=== PATIENT | female | born 1980 | race Caucasian/White ===

== ENCOUNTER → 2023-06-28 18:51 | Outpatient (REF) | payer BC, SELFPAY | LOC: WDC 18:51 | PROVIDERS: ATTENDING PHYSICIAN Family Medicine | DX: Z12.31 Encounter for screening mammogram for malignant neoplasm of breast (principal) | CPT/HCPCS: 77063; 77067 ==

== ENCOUNTER 2023-10-16 01:21 | Observation (INO) | payer BC, SELFPAY ==
[2023-10-15 19:32] VITALS: BP 148/84
--- NOTE | 2023-10-15 20:22 | ED.GENMED ---
History of Present Illness
General
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
Source: patient
Exam Limitations: none
Time Seen by Provider: 10/15/23 20:14
History of Present Illness
History of Present Illness:
43-year-old female 2 to 3 days of progressive pain and swelling to the perirectal area. No pain with defecation. No rectal bleeding. No abdominal pain no systemic symptoms. Patient was seen at urgent care and sent for further evaluation of a
possible perirectal abscess.
Past History
Past History
ED Past Medical History: Other (On Mounjaro and metformin. However not for diabetes.)
Review of Systems
Review of Systems
All Other Systems: Not applicable
Constitutional: Denies fever or chills
Phy Exam
Physical Exam
Physical Exam:
GENERAL: Alert and oriented in no apparent distress
CARDIAC: Regular rate and rhythm without any obvious murmurs.
LUNGS: Clear breath sounds,normal
ABDOMEN: Soft, without focal tenderness or distention. Some hardness to the left perirectal area relatively deep. Approximately 2 cm. No erythema no drainage. Rectal exam normal. External vaginal area normal
NEUROLOGICAL: Alert and oriented , grossly non-focal
SKIN: Warm and dry
PSYCH: Normal and appropriate interaction.
Course
Orders/Labs/Results
Orders:
Orders
10/15/23 20:21
CT Pelvis With Iv Contrast Urgent
Comment:
Reason For Exam: Perirectal abscess
IV Insert/Care/Rem.- Treatment PRN
0.9% Sodium Chloride 500 ml [Nss] 500 ml IV BOLUS
10/15/23 20:22
Test Result ONCE
10/15/23 20:50
Basic Metabolic Panel Urgent
Complete Blood Count/With Diff Urgent
HCG, Serum Qualitative Screen Urgent
10/15/23 23:55
Zosyn 3.375 grams IVPB NOW Piperacillin/Tazo 3.375 Gram [Zosyn] 3.375 gram in 50 ml IV NOW
Abnormal Lab Results
10/15/23
20:50
WBC 13.1 H 10^3/uL
(4.8-10.8)
MPV 10.6 H fL
(7.4-10.4)
Abs Immat Gran (auto) 0.1 H 10^3/uL
(0-0.05)
Absolute Neuts (auto) 9.8 H 10^3/uL
(1.4-6.5)
Absolute Monos (auto) 0.8 H 10^3/uL
(0.1-0.6)
Lymphocytes % 18.0 L %
(20.5-51.1)
10/15/23 20:50
10/15/23 20:50
Vital Signs
Initial and Last Documented VS:
Initial Vital Signs
Temp Pulse Resp BP Pulse Ox
97.8 F 108 22 148/84 100
10/15/23 19:32 10/15/23 19:32 10/15/23 19:32 10/15/23 19:32 10/15/23 19:32
Last Documented Vital Signs
Temp Pulse Resp BP Pulse Ox
97.8 F 88 16 148/72 100
10/15/23 19:32 10/15/23 22:00 10/15/23 22:00 10/15/23 22:00 10/15/23 22:00
MDM/Problems Addressed
Differential Diagnosis Includes:
Concern for possible early perirectal abscess. Not clearly drainable at this time. Will get a CT scan to further evaluate
*Radiology
Radiology exam reviewed: radiology read reviewed (15 x 15 mm perirectal abscess.)
*Pulse Oximetry
Patient hypoxic: no
*Critical Care Note
Total Time (30-74mins, 75-104mins- exclusive of procedures): Not Applicable
Update Note
Update Note:
Discussed with colorectal surgery. Admit n.p.o. IV antibiotics discussed with colorectal surgery and admit n.p.o. IV antibiotics
ED Attending Note
-
Portions of this chart may have been created with voice recognition software.� Occasional wrong word or��sound alike� substitutions may have occurred due to the inherent limitations of voice recognition software.
Discharge Plan
Departure
Patient Disposition: Admit
Date of Disposition: 10/15/23
Time of Disposition: 23:56
Presentation/result/management discussed w/ accepting MD/DO: Colorectal surgery
Discharge Problem:
Perirectal abscess
Prescriptions:
No Action
Vitamin Tablet
1 tab PO DAILY
ibuprofen 600 MG tablet
600 mg PO Q4HPRN PRN (Reason: moderate pain/cramps) 0RF
Referrals:
Aung Echavarria DO [Family Provider] -
Interventions
Interventions:
*Risk Screen - Suicide Last Done: 10/15/23 19:32
*General Assessment Last Done: 10/15/23 20:30
*Neglect/Abuse Screening Last Done: 10/15/23 19:32
*ED COVID-19 Vaccine History Last Done: 10/15/23 20:30
ED-Female Genitourinary Assessment Last Done: 10/15/23 20:30
Discharge Date and Time
Print Language: GHANAIAN
[2023-10-15] MEDS: NSS 500 IV (20:52)
[2023-10-15 21:03] LABS: % Basophils 0.2 % (0-2); % Eosinophils 0.2 % (0-6); % Immature Granulocytes 0.5 % (0-0.5); % Monocytes 6.3 % (1.7-9.3); % Neutrophils 74.8 % (42.2-75.2); Absolute Immature Granulocytes 0.1 10^3/uL (0-0.05); Absolute Lymphocytes 2.4 10^3/uL (1.2-3.4); Absolute Monocytes 0.8 10^3/uL (0.1-0.6); Absolute Neutrophils 9.8 10^3/uL (1.4-6.5); Hematocrit 37.8 % (37.0-47.0); Hemoglobin 13.2 g/dL (12.0-16.0); Mean Corp Hgb Conc. 34.9 g/dL (33.0-37.0); Mean Corpuscular Hgb 29.3 pg (27.0-31.0); Mean Platelet Volume 10.6 fL (7.4-10.4); Nucleated Red Blood Cells % 0 %; Platelet Count 281 10^3/uL (130-400); Red Cell Dist. Width 12.8 % (11.5-14.5); White Blood Cell Count 13.1 10^3/uL (4.8-10.8)
[2023-10-15 21:09] LABS: HCG, Serum Qualitative Screen Negative
[2023-10-15 21:14] LABS: Blood Urea Nitrogen 9 mg/dl (7-17); Calcium 9.7 mg/dl (8.4-10.2); Carbon Dioxide 25 mmol/L (22-30); Chloride 104 mmol/L (98-107); Glucose 89 mg/dl (70-99); Sodium 137 mmol/L (135-145); eGFR > 60.00
[2023-10-15 22:00] VITALS: BP 148/72
[2023-10-16] VITALS (11 sets, daily range): BP systolic 105–148; BP diastolic 53–80; BMI 26.8
[2023-10-16] MEDS: ZOSYN 50 IV ×2 (00:04→06:19)
--- NOTE | 2023-10-16 01:17 | HPS.HSE ---
Addendum entered and electronically signed by Alex Murphy MD 10/16/23 10:14:
Patient is a 43-year-old female with PMH of obesity, on Mounjaro and metformin for insulin resistance, who presents with 3 days of worsening perianal pain and swelling. This is never happened to her before. Denies any fevers. Has had a history of
2 vaginal deliveries with tears, s/p repair. Denies any fecal incontinence. Also has a history of skin tags and hemorrhoids. Recently underwent a colonoscopy, showing polyps and hemorrhoids. WBC was [address] showing concern for left perianal
abscess, about 1.5 cm.
AFVSS, tender to palpation in the left anterior position with induration extending into the perineum, no obvious fluctuance, no drainage
� Will take to OR for incision and drainage as there is no obvious fluctuance and it appears deep; explained to the risks benefits and alternatives with the patient, all questions were answered and the patient was amenable to proceed
� Keep n.p.o. with IV fluids
� Pain control with Tylenol and Dilaudid
� OOB/IS
� Continue IV Zosyn
Dispo�depending on operative findings
Original Note:
Family Physician
-
Family Physician: Aung Echavarria
Chief Complaint
-
Perirectal discomfort
History of Present Illness
Patient is a 43-year-old female with past medical history of insulin resistance. Currently on Metformin 200mg qHS and Mounjaro 0.5mg weekly on Sundays for insulin resistance and weight loss. Patient presented to [facility] ED to be
evaluated by recommendation of Urgent Care. Patient stated that two days ago she started noticing some discomfort when sitting down, described as pressure. Yesterday while pool side sat on edge of pool and stated the pressure definitely was more
evident on the hard surface. Today while out and running errands all day she noticed she needed to 'brace' herself before sitting down on any surface and prior to having bowel movement. Every time she sat she had discomfort and would become
tolerable. She denies any discomfort when standing, walking or lying down. Denies any fever, chest pain, cough, shortness of breath, nausea, vomiting, constipation, diarrhea, or any urinary symptoms. She ultimately decided to go to Urgent Care for
evaluation and their recommendation was go to ER for further workup. Ct of pelvis: 1.8cm right adnexal cyst. Patient to be admitted to colorectal, Dr. Deshawn Murphy's service.
Medical History
Past Medical History
Past Medical History: Reports Other (insulin resistance)
Past Surgical History: Reports None
Social History
Tobacco: Non-smoker
Alcohol: Occasional (last drink yesterday, 10/14/2023)
Drug: None
Personal:
Living: With Family
Employment: Employed
Family History
Family History: Not pertinent
Allergies / Home Medications
Allergies reflects when Allergies were last updated in [facility] ? IO.
Home Medications with original date entered in [facility] ? IO
Allergy/Medication List:
Allergies
Allergy/AdvReac Type Severity Reaction Status Date / Time
shellfish derived Allergy Tongue Verified 10/15/23 19:36
Swelling
Home Medications Table - record
�Medication �Instructions �Recorded �Confirmed
metformin 1,000 mg tablet 2,000 mg PO HS 10/16/23 10/16/23
tirzepatide 5 mg/0.5 mL 5 mg SC QWEEK 10/16/23 10/16/23
subcutaneous pen injector
(Mounjaro)
Review of Systems
-
History Source: Patient
A 12 point ROS was completed and negative except as noted: Yes
Constitutional: Reports No Symptoms
EENT: Reports No Symptoms
Respiratory: Reports No Symptoms
Cardiac: Reports No Symptoms
Abdomen/GI: Reports Pain (perirectal pressure ) and Other (perirectal 'lump')
: Reports No Symptoms
Musculoskeletal: Reports No Symptoms
Skin: Reports No Symptoms
Neurological: Reports No Symptoms
Endocrine: Reports No Symptoms
Hematologic/Lymphatic: Reports No Symptoms
Psych: Reports No Symptoms
Physical Exam
Vital Signs
Vital Signs
Temp Pulse Resp BP Pulse Ox
97.8 F 88 16 148/72 100
10/15/23 19:32 10/15/23 22:00 10/15/23 22:00 10/15/23 22:00 10/15/23 22:00
Physical Exam
General: Well Developed, Well Nourished, Comfortable and Conversant
HEENT: NormoCephalic, Moist mucous membranes, PERRLA, [place] Conjunctivae, Nose Appears Normal and Ears Appear Normal
Respiratory: Clear and Non Labored Respirations
Cardiac: S1/S2 and Regular Rhythm
Breast: Deferred by me
GI: Soft, Non Tender and Normal Bowel Sounds
Rectal: Masses Palpated (perirectal )
Genito-urinary: Deferred by me
Musculoskeletal: No Clubbing, No Cyanosis, No Edema and Normal Gait & Station
Skin: Warm, Dry and IV/Catheter Site
Neuro: Awake, AO x 3 and Cranial Nerves Intact
Psych: Calm and Intact Judgment/Insight
Laboratory Results
-
10/15/23 20:50
10/15/23 20:50
Data Reviewed
-
CT Scan: Report Reviewed by me and Discussed with Patient
Lab Data: Labs Reviewed by me and Discussed with Patient
Impression/Plan
-
IMPRESSION:
Patient is a 43-year-old female with past medical history of insulin resistance. Currently on Metformin 200mg qHS and Mounjaro 0.5mg weekly on Sundays for insulin resistance and weight loss. Patient presented to [facility] ED to be
evaluated by recommendation of Urgent Care. Patient stated that two days ago she started noticing some discomfort when sitting down, described as pressure. Yesterday while pool side sat on edge of pool and stated the pressure definitely was more
evident on the hard surface. Today while out and running errands all day she noticed she needed to 'brace' herself before sitting down on any surface and prior to having bowel movement. Every time she sat she had discomfort and would become
tolerable. She denies any discomfort when standing, walking or lying down. Denies any fever, chest pain, cough, shortness of breath, nausea, vomiting, constipation, diarrhea, or any urinary symptoms. She ultimately decided to go to Urgent Care for
evaluation and their recommendation was go to ER for further workup. Ct of pelvis: 1.8cm right adnexal cyst. Patient to be admitted to colorectal, Dr. Deshanw Murphy's service.
PLAN:
# Perirectal Abscess
- Admit to Dr. Deshawn Murphy service
- NPO after midnight
- Zosyn q6
# Insulin Resistance
- continue home metformin
NPO
Full Code
DVT Prophylaxis: SCDs
[2023-10-16] MEDS: NSS 1000 IV (04:20)
--- NOTE | 2023-10-16 07:30 | PTCARENOTE ---
Patient ambulating in room, minimal c/o rectal pain. Patient NPO for possible OR. Patient has menses-supplies given to patient.
--- NOTE | 2023-10-16 11:17 | W.IMMPOSTOP ---
Surgical Immed Post Op Note
-
Primary Surgeon: Alex Murphy MD
Assisting Surgeon: None
Pre-op Diagnosis: Perianal abscess
Post-op Diagnosis: Left anterior perianal abscess
Procedure Performed: Incision and drainage of perianal abscess
Anesthesia Type: General
Specimen / Cultures: Aerobic and anaerobic
Estimated Blood Loss: 5 mL
Complications: None
Operative Findings: Per op note
--- NOTE | 2023-10-16 11:27 | OR.RPT ---
Operative Report
Operative Report
DATE OF OPERATION: 10/16/2023
SURGEON: Alex Murphy MD
PREOPERATIVE DIAGNOSIS: Left-sided perianal abscess
POSTOPERATIVE DIAGNOSIS: Left-sided ischiorectal perianal abscess
OPERATION: Exam under anesthesia, incision and drainage of left perianal abscess, anal canal biopsy, pudendal nerve block
ASSISTANTS:
1. None
ANESTHESIA: General with local
ESTIMATED BLOOD LOSS: 5 mL
FINDINGS:
1. Small, white lesion noted just proximal to the dentate line in the right lateral quadrant of the anal canal; performed biopsy
2. Palpable indurated area in the left anterior ischiorectal area; obtained about 3 mL of pus using a finder needle and sent this for cultures; created a cruciate incision about 1.5 cm from the anal verge and identified an ischiorectal abscess,
about 2 cm in diameter; irrigated and left open for drainage
SPECIMENS:
1. Right lateral anal canal biopsy
2. Perianal abscess cultures
DRAINS: None
COMPLICATIONS: None
INDICATIONS: The patient is a 43-year-old female who presented with 3 days of perianal pain and swelling. This is never happened to her before. In the ED, her WBC was [address] showed likely 1.5 cm perianal abscess on the left side. On exam,
there was an indurated area, no fluctuance, in the anterior to left anterior position extending slightly medially into the perineum and laterally into the ischiorectal space. Therefore, the patient was recommended to have surgery both to drain the
abscess and identify the extent of the abscess, as this was difficult to fully appreciate on imaging and exam. The operation was discussed with the patient in detail, including the risks, benefits and alternatives. Risks described included, but not
limited to bleeding, infection, damage to nearby structures such as the anal sphincter, fecal incontinence, recurrence, urinary retention, inability to drain the abscess and anesthetic risk. The patient understood and agreed to proceed.
PROCEDURE IN DETAIL: The patient was taken to the operating room. Per anesthesia, the decision was made to intubate the patient for this surgery due to her recent dosing of Mounjaro. On the stretcher, general anesthesia was induced and the
patient was intubated without complication. The patient was then placed on the operating table in prone position. Sequential compression devices were placed bilaterally. Two seat belts were secured around the legs and upper back. The buttocks
were taped apart. The perineum was prepped and draped in the usual fashion. A time-out was then performed verifying the correct patient, procedure, operative site, positioning, and special equipment.
Local anesthesia used was a mixture of 60 mL of 0.25% Marcaine without epinephrine (with epinephrine was on backorder) and 0.6 mg of dexamethasone. 40 mL was injected perianally at the beginning of the case. The anorectal exam was performed
assessing all four quadrants of the anal canal using Hill-Rojas retractors in progressively increasing size. Within the anal canal, there was no concerning internal hemorrhoids. There were small anal papilla. The rectal mucosa appeared healthy
without inflammation. There appeared to be a healed anterior anal fissure with reepithelialization. There was a small, 7 mm x 2 mm whitish lesion just proximal to the dentate line in the right lateral position. I biopsied this to rule out
dysplasia. I elevated a portion of the lesion with forceps and took a small biopsy with Metzenbaum scissors. Hemostasis was achieved with electrocautery.
On palpation of the indurated area, no drainage was noted within the anal canal. No obvious internal openings were noted. Then, an 18G needle was advanced into the apex of the abscess and 3 mL of pus was aspirated. This was sent for aerobic and
anaerobic culture. I again palpated the indurated area and pus was noted to emanate from the needle hole. I performed a cruciate incision at this spot. Using hemostats, I probed into the ischiorectal space and identified a cavity. No further pus
was noted. The cavity was probed with my finger and no further loculations were noted. The cavity was copiously irrigated. The corners of the cruciate incision were excised. Hemostasis was achieved with electrocautery.
The remaining 20 mL of local were injected. 5 mL was injected bilaterally for a pudendal nerve block. 10 mL was injected around the surgical site and perianally. Hemostasis was reassessed once more using the small Jorge-Rojas and was confirmed.
Hemostasis was confirmed. The corner of a 4x4 gauze was then packed into the abscess cavity.
At this point, the procedure was complete. All needle, sponge and instrument counts were correct. The patient tolerated the procedure well. The area was dressed with gauze and tape.
DICTATED BY: Alex Murphy MD
[2023-10-16 11:30] LABS: Glucose - Point of Care 73 mg/dl (70-99)
== END 2023-10-16 13:16 | disposition home or self-care (01) ==
LOC: ED 01:21
PROVIDERS: ADMITTING PHYSICIAN Surgery; EMERGENCY PHYSICIAN Emergency Medicine; FAMILY PHYSICIAN Family Medicine
DX: K61.2 Anorectal abscess (principal); R10.2 Pelvic and perineal pain; E66.9 Obesity, unspecified; E88.819 Insulin resistance, unspecified; K64.9 Unspecified hemorrhoids; Z68.26 Body mass index [BMI] 26.0-26.9, adult; Z79.84 Long term (current) use of oral hypoglycemic drugs; Z79.85 Long-term (current) use of injectable non-insulin antidiabetic drugs; Z91.013 Allergy to seafood
CPT/HCPCS: 11420; 46050; 88305; 72193; 80048; 82962; 84703; 85025; 87070; 87075; 87077; 87186; 87205; 88341; 88342; 96361; 96365; 99285; G0378; Q9967

== ENCOUNTER 2024-02-06 06:15 | Day surgery (SDC) | payer BC, SELFPAY ==
[2024-02-06 11:03] VITALS: BMI 25.5
[2024-02-06 11:05] VITALS: BMI 25.6
[2024-02-06] MEDS: TYLENOL 1000 MG PO (11:11)
[2024-02-06] MEDS: LYRICA 150 MG PO (11:11)
[2024-02-06] MEDS: CELEBREX 200 MG PO (11:12)
[2024-02-06 11:15] VITALS: BP 122/76
[2024-02-06 11:27] LABS: Glucose - Point of Care 78 mg/dl (70-99)
--- NOTE | 2024-02-06 13:11 | W.IMMPOSTOP ---
Surgical Immed Post Op Note
-
Primary Surgeon: Alex Murphy MD
Assisting Surgeon: None
Pre-op Diagnosis: Perianal fistula
Post-op Diagnosis: Transsphincteric perianal fistula
Procedure Performed: Exam under anesthesia, debridement of fistula tract, placement of seton, bilateral pudendal nerve block
Anesthesia Type: Sedation with local
Specimen / Cultures: Fistula tract, anterior anal canal biopsy
Estimated Blood Loss: 5 mL
Complications: None
Operative Findings: Identified external opening about 1.5 cm from the anal verge in the left anterior position; fistula was probed and internal opening was easily identified in the anterior midline at the level of the dentate line; anterior anal
canal measured approximately 2.5 to 3 cm in length; posterior anal canal measured about 3 cm in length; 7 to 8 mm of external sphincter and 1.5 to 2 cm of internal sphincter muscle were involved in the tract; noticed whitish change to the mucosa
near the internal opening, biopsied; noted small minimally irritated internal hemorrhoids in the normal 3 column distribution; noted small circumferential external hemorrhoids; noted the RAQ skin tag and posterior left of midline skin tag; debrided
the external opening and curetted the fistula tract, sent these specimens as fistula tract; placed a seton
[2024-02-06 13:15] VITALS: BP 109/51
--- NOTE | 2024-02-06 13:24 | OR.RPT ---
Operative Report
Operative Report
DATE OF OPERATION: 02/06/2024
SURGEON: Alex Murphy MD
PREOPERATIVE DIAGNOSIS: Perianal fistula
POSTOPERATIVE DIAGNOSIS: Transsphincteric perianal fistula
OPERATION: Exam under anesthesia, debridement of fistula tract, placement of seton, pudendal nerve block
ASSISTANTS:
1. None
ANESTHESIA: Sedation with local
ESTIMATED BLOOD LOSS: 5 mL
FINDINGS:
1. Identified a left anterior transsphincteric fistula; external opening about 1.5 cm from the anal verge and internal opening in the anterior midline at the level of the dentate line; I estimate about 7 to 8 mm of external sphincter and 1.5 to 2
cm of internal sphincter muscle were involved with the tract; placed a seton
2. Whitish change to the mucosa adjacent to the internal opening, most likely consistent with chronic inflammation; biopsied
3. Anal canal measured approximately 2.5 to 3 cm in length anteriorly and 3 cm in length posteriorly
4. Incidental findings include small minimally irritated internal hemorrhoids in the usual 3�column distribution, circumferential small external hemorrhoids without thrombosis or irritation, large right anterior skin tag and small posterior skin
tag just left of midline
SPECIMENS:
1. Fistula tract
2. Anterior anal canal biopsy
DRAINS: None
COMPLICATIONS: None
INDICATIONS: The patient is a 44-year-old female who initially presented to the [facility] ED on 10/15/2023 with a left anterior perianal abscess. This was drained in the operating room via an incision and drainage. She recovered well from the
surgery with no residual symptoms. She then presented to my office on 12/31 complaining of worsening perianal drainage associated with spotting of blood. There was no fecal incontinence or change to her bowel habits. On exam, I noted an external
opening, concerning for a perianal fistula. Therefore, the patient was recommended to have surgery. The operation was discussed with the patient in detail, including the risks, benefits and alternatives. My plan is to attempt to identify a perianal
fistula. If one is identified, I would evaluate for how much sphincter is involved. If there is no sphincter or minimal sphincter involved, I would perform a fistulotomy. Otherwise, my plan would be to place a seton drain and perform a second
stage surgery at a later date. Risks described included, but not limited to bleeding, infection, urinary retention, damage to nearby structures such as the anal sphincter, fecal incontinence, recurrence, inability to identify the internal opening,
and anesthetic risks. The patient understood and agreed to proceed. The consent was signed and placed in the chart.
PROCEDURE IN DETAIL: The patient was taken to the operating room. The patient was then placed on the operating table in prone position. Sequential compression devices were placed bilaterally. Sedation was commenced without complication. Two seat
belts were secured around the legs and upper back. The buttocks were taped apart. The perineum was prepped and draped in the usual fashion. A time-out was then performed verifying the correct patient, procedure, operative site, positioning, and
special equipment.
Local anesthesia used was a mixture of 60 mL of 0.25% Marcaine with epinephrine and 0.6 mg of dexamethasone. 40 mL was injected perianally at the beginning of the case. The anorectal exam was performed assessing all four quadrants of the anal canal
using Hill-Rojas retractors in progressively increasing size. Externally, I noted a raised inflammatory appendage in the left anterior position about 1.5 cm from the anal verge, concerning for an external opening of a fistula. There was the
previously noted large right anterior small posterior skin tags. She had small external hemorrhoids without any evidence of thrombosis or irritation. These were left alone. On anoscopy, there were small, minimally irritated, internal hemorrhoids
in the right anterior, right posterior and left lateral positions. These were unlikely related to her symptoms and therefore left alone. There was no proctitis. In the anterior midline at the level of the dentate line, there was a puckering
noted, concerning for an internal opening. Just adjacent to this opening, there was an elevated whitish change to the anal mucosa. Using the [place] fistula probes, I probed the external opening and easily passed the probe to the internal opening
in the anterior midline at the dentate line. No other fistula tracts or branches were noted. There appeared to be about 7 to 8 mm of external sphincter muscle involved in the tract, as well as 1.5 to 2 cm of internal sphincter muscle, consistent
with a transsphincteric fistula. Therefore, I elected to place a seton as she would likely need a sphincter�sparing procedure to treat her fistula. I attached a 2-0 silk tie to the fistula probe and advanced this through the fistula tract. I
curetted the fistula tract and sent this for pathologic review. I debrided the external opening by excising the inflammatory tissue associated with the opening using electrocautery. I included this in the fistula tract specimen. I passed a vessel
loop through the fistula track that I attached to the silk tie. I secured the seton drain in a circular fashion using three 2-0 silk ties. I was able to pass the tip of my index finger underneath the seton, confirming that the seton was not too
tight. I copiously irrigated the wound and hemostasis was confirmed.
I then turned my attention to the whitish mucosa adjacent to the internal opening. This could signify inflammation, but could also be something else such as dysplasia. To confirm, I performed a biopsy. A small portion of this area was elevated
with a forceps and a biopsy was taken using Metzenbaum scissors. Hemostasis was achieved with electrocautery.
The remaining 20 mL of local were injected. 5 mL was injected bilaterally for a pudendal nerve block. 10 mL was injected around the surgical site and perianally. Hemostasis was reassessed once more using the small Jorge-Rojas and was confirmed.
At this point, the procedure was complete. All needle, sponge and instrument counts were correct. The patient tolerated the procedure well and was transferred to the recovery room in stable condition with gauze and silk tape in place over the anus.
DICTATED BY: Alex Murphy MD
[2024-02-06 13:30] VITALS: BP 100/53
== END 2024-02-06 14:04 | disposition home or self-care (01) ==
LOC: SDS 06:15
PROVIDERS: ATTENDING PHYSICIAN Surgery; FAMILY PHYSICIAN Family Medicine
DX: K60.30 Anal fistula, unspecified (principal); K64.4 Residual hemorrhoidal skin tags; L83 Acanthosis nigricans
CPT/HCPCS: 46020; 46270; 88304; 88305; 82962; 87070

== ENCOUNTER → 2024-05-15 10:00 | Outpatient (REF) | payer BC, SELFPAY | LOC: CLAB 10:00 | PROVIDERS: ATTENDING PHYSICIAN Surgery | DX: K60.30 Anal fistula, unspecified (principal) | CPT/HCPCS: 88304 ==

== ENCOUNTER → 2024-07-02 18:50 | Outpatient (REF) | payer BC, SELFPAY | LOC: WDC 18:50 | PROVIDERS: ATTENDING PHYSICIAN Nurse Practitioner Adult Health; FAMILY PHYSICIAN Family Medicine | DX: Z12.31 Encounter for screening mammogram for malignant neoplasm of breast (principal) | CPT/HCPCS: 77063; 77067 ==

== ENCOUNTER → 2024-09-04 09:15 | Outpatient (REF) | payer BC, SELFPAY | LOC: CLAB 09:15 | PROVIDERS: ATTENDING PHYSICIAN Surgery | DX: K60.30 Anal fistula, unspecified (principal) | CPT/HCPCS: 88304 ==

== ENCOUNTER → 2025-01-20 16:07 | Outpatient (REF) | payer BC, SELFPAY | LOC: RAD 16:07 | PROVIDERS: ATTENDING PHYSICIAN Nurse Practitioner Adult Health; FAMILY PHYSICIAN Family Medicine | DX: D25.9 Leiomyoma of uterus, unspecified (principal); N83.209 Unspecified ovarian cyst, unspecified side | CPT/HCPCS: 76830; 76856 ==